=== PATIENT | male | born 1950 | race Caucasian/White ===

== ENCOUNTER 2017-02-26 20:58 | Emergency (ER) | payer OTHER, MEDICARE ==
[~2017-02-26] VITALS: Ht 170.2 cm; Wt 90.5 kg
[~2017-02-26 20:58] MED LIST: ACET-2047 PO; CLON0.1T14 PO; FINA5TAB4 PO; FURO-110 PO; GLIM4TAB PO; METO-448 PO; MTF1000T PO; NIFE60TA7 PO; OMEP20CA16 PO; SIMV20TA PO; TAMS0.4C2 PO
[2017-02-26 21:10] VITALS: Ht 170.2 cm; Wt 90.5 kg
--- NOTE | 2017-02-27 00:44 | ERA ---
ER Documentation Chief Complaint Date/Time DATE: 02/27/17 TIME: 00:44 Chief Complaint LEFT SIDED CP RADIATING TO BACK X 4 DAYS 07/02 HPI The patient is a 66-year-old male, presenting to the ER because of left-sided chest pain intermittently for the last 4 days, 07/02, worse with movement. He denies similar symptoms previously. He also complained of general body pain, worse with movement. He complains of subjective fever last night and intermittent cough. He denies chest pain with exertion or vomiting or diaphoresis, denies abdominal pain, vomiting, dysuria. He does not smoke nor drink Past medical history: Dyslipidemia, hypertension, diabetes mellitus, BPH, chronic low back Past surgical history: Back, ventral hernia ROS All systems reviewed and are negative except as per history of present illness. Medications Home Meds Reported Medications Acetaminophen* (Acetaminophen*) 650 Mg Tablet, 1300 MG PO Q6 Y for PAIN AND OR ELEVATED TEMP, TAB 08/24/14 Simvastatin* (Zocor*) 20 Mg Tablet, 20 MG PO HS, TAB 08/24/14 Nifedipine* (Nifedipine ER*) 60 Mg Tablet.sa, 60 MG PO DAILY, TAB.SA 08/24/14 Furosemide* (Lasix*) 20 Mg Tablet, 20 MG PO DAILY, TAB 08/24/14 Metoprolol Tartrate* (Lopressor*) 25 Mg Tab, 25 MG PO BID, TAB 08/24/14 Glimepiride* (Glimepiride*) 4 Mg Tablet, 4 MG PO BID, TAB 08/24/14 Clonidine Hcl* (Catapres*) 0.1 Mg Tablet, 0.1 MG PO TID, TAB 08/24/14 Metformin* (Glucophage*) 1,000 Mg Tablet, 1000 MG PO BID, TAB 08/24/14 Omeprazole* (Omeprazole*) 20 Mg Capsule.dr, 20 MG PO QD AC MEAL 07/27/13 Tamsulosin Hcl* (Tamsulosin Hcl*) 0.4 Mg Cap.er.24h, 0.8 MG PO DAILY 07/27/13 Finasteride* (Finasteride*) 5 Mg Tablet, 5 MG PO DAILY 07/27/13 Allergies Allergies: Coded Allergies: No Known Drug Allergy (Verified Allergy, Unknown, 09/04/14) PMhx/Soc History of Surgery: Yes (lumbar fusion) Anesthesia Reaction: No Hx Neurological Disorder: No Hx Respiratory Disorders: No Hx Cardiac Disorders: Yes (HTN) Hx Psychiatric Problems: No Hx Miscellaneous Medical Probl: Yes (BPH, CAD, DM, HTN, hyperlipid, chronic LBP ) Hx Alcohol Use: No Hx Substance Use: No Hx Tobacco Use: No Physical Exam Vitals Vital Signs Date Time Temp Pulse Resp B/P Pulse Ox O2 Delivery O2 Flow Rate FiO2 02/27/17 03:30 63 19 131/78 97 Room Air 02/27/17 01:00 64 20 150/92 97 Room Air 02/26/17 21:10 100.6 77 18 153/77 100 Physical Exam Const: No acute distress. Head: Atraumatic. Eyes: Normal Conjunctiva. ENT: Normal External Ears, Nose and Mouth. Neck: Full range of motion. No meningismus. Resp: Clear to auscultation bilaterally. Cardio: Regular rate and rhythm, no murmurs. Reproducible chest wall pain Abd: Soft, non distended, normal bowel sounds, non tender. Skin: No petechiae or rashes. Back: No midline or flank tenderness. Ext: No cyanosis, or edema. Neur: Awake and alert. No focal deficit Psych: Normal Mood and Affect. Result Diagram: 02/27/17 0050 02/27/17 0050 Results 24 hrs Laboratory Tests Test 02/27/17 00:50 White Blood Count 9.910^3/ul Red Blood Count 4.4110^6/ul Hemoglobin 12.9g/dl Hematocrit 38.9% Mean Corpuscular Volume 88.2fl Mean Corpuscular Hemoglobin 29.3pg Mean Corpuscular Hemoglobin Concent 33.2g/dl Red Cell Distribution Width 13.9% Platelet Count 88736^3/UL Mean Platelet Volume 10.3fl Neutrophils % 61.4% Lymphocytes % 27.2% Monocytes % 9.4% Eosinophils % 1.6% Basophils % 0.2% Nucleated Red Blood Cells % 0.0/100WBC Neutrophils # 6.110^3/ul Lymphocytes # 2.710^3/ul Monocytes # 0.910^3/ul Eosinophils # 0.210^3/ul Basophils # 0.010^3/ul Nucleated Red Blood Cells # 0.010^3/ul Prothrombin Time 12.5Sec Prothrombin Time Ratio 1.0 INR International Normalized Ratio 0.93 Activated Partial Thromboplast Time 31.4Sec Sodium Level 138mmol/L Potassium Level 4.2mmol/L Chloride Level 101mmol/L Carbon Dioxide Level 27mmol/L Anion Gap 14 Blood Urea Nitrogen 12mg/dl Creatinine 0.80mg/dl Glucose Level 91mg/dl Lactic Acid Level 1.7mmol/L Calcium Level 9.6mg/dl Total Bilirubin 0.2mg/dl Direct Bilirubin 0.00mg/dl Indirect Bilirubin 0.2mg/dl Aspartate Amino Transf (AST/SGOT) 33IU/L Alanine Aminotransferase (ALT/SGPT) 40IU/L Alkaline Phosphatase 87IU/L Troponin I < 0.012ng/ml Total Protein 7.9g/dl Albumin 4.7g/dl Globulin 3.20g/dl Albumin/Globulin Ratio 1.46 Current Medications Medications (Trade) Dose Ordered Sig/Josiah Route PRN Reason Start Time Stop Time Status Last Admin Dose Admin Aspirin (Aspirin) 325 mg ONCE ONCE PO 02/27/17 01:00 02/27/17 01:01 DC 02/27/17 01:11 Nitroglycerin (Nitroglycerin 2% Oint) 1 inch ONCE ONCE TD 02/27/17 01:00 02/27/17 01:01 DC 02/27/17 01:11 Acetaminophen (Tylenol Tab) 650 mg ONCE ONCE PO 02/27/17 01:00 02/27/17 01:01 DC 02/27/17 01:11 Methocarbamol (Robaxin) 1,500 mg ONCE ONCE PO 02/27/17 03:30 02/27/17 03:32 DC 02/27/17 03:46 Procedures/MDM EKG: Read by emergency physician at 8:57 PM Rate/Rhythm: Normal Sinus Rhythm 75 beats/min QRS, ST, T-waves: No ST elevation, no T inversion, first-degree AV block, LAD Impression: Abnormal EKG EKG: Read by emergency physician at 1:05 AM Rate/Rhythm: Normal Sinus Rhythm 65 beats/min QRS, ST, T-waves: No ST elevation, no T inversion, first-degree AV block Impression: Abnormal EKG [place] [id number] Radiology Main Line: [phone] DIAGNOSTIC IMAGING REPORT Patient: KAYLAH LAURENT : 1950 Age: 66 Sex: M MR #: [id number] DOS: 02/27/17 0046 Ordering MD: CAITIE HOFF MD Location: E/R Room/Bed: PROCEDURE: CHEST - 1 VIEW CLINICAL INDICATION: 66-year-old male with chest pain. TECHNIQUE: A single frontal AP portable view of the chest was performed. The images were reviewed on a PACS workstation. COMPARISON: Chest x-ray September 04, 2014. FINDINGS: There is a shallow inspiration accentuating the heart size. Accounting for this , the cardiomediastinal silhouette is mildly prominent but without significant interval change. There is bilateral lung zone subsegmental atelectasis. There is no evidence for an infiltrate. There is no evidence for congestive heart failure. There is no evidence for pneumothorax. The osseous structures are intact. IMPRESSION: Shallow inspiration with bilateral lower lung zone subsegmental atelectasis. .Tommy Perry MD, MD Date Time Electronically viewed and signed by .Tommy Perry MD, MD on 02/27/2017 01:59 .M/ CC: CAITIE HOFF MD MEDICAL MAKING DECISION: The patient is a 66-year-old male with multiple cardiac risk factors, presenting to the ER because of acute chest pain that is concerning for ACS. He was treated with aspirin 325 mg p.o., 1 inch nitroglycerin ointment for acute chest pain and Tylenol for fever with good response. The differential diagnoses considered include but are not limited to acute coronary syndrome, acute myocardial infarction, pericarditis, pulmonary embolism, aortic dissection, pneumonia, pleural effusion, pneumothorax, GERD, chest wall pain. UA is pending Departure Diagnosis: Primary Impression: Chest pain Additional Impression: Anemia Condition: Stable Comments I discussed the findings with the patient. I discussed the patient with the on- call hospitalist Dr. Edgar who was made aware of the lab, the treatment, the patient condition. The patient is admitted to 2:50 AM CAITIE HOFF MD Feb 27, 2017 00:44
[2017-02-27] MEDS ORDERED: ASPIRIN 325 MG TAB PO ONE (01:00)
[2017-02-27] MEDS ORDERED: NITROGLYCERIN 2% 1 GM OINT PKT TD ONE (01:00)
[2017-02-27] MEDS ORDERED: ACETAMINOPHEN 325 MG TAB PO ONE (01:00)
[2017-02-27 01:17] LABS: ADD SCAN DIFF NO
[2017-02-27 01:21] LABS: BASOPHILS % 0.2 % (0.0-2.0); EOSINOPHILS # 0.2 10^3/ul (0.0-0.5); EOSINOPHILS % 1.6 % (0.0-7.0); HEMATOCRIT 38.9 % (42.0-52.0); HEMOGLOBIN 12.9 g/dl (14.0-18.0); LYMPHOCYTES # 2.7 10^3/ul (0.8-2.9); LYMPHOCYTES % 27.2 % (15.0-51.0); MEAN CORPUSCULAR HEMOGLOBIN 29.3 pg (29.0-33.0); MEAN CORPUSCULAR HGB CONC 33.2 g/dl (32.0-37.0); MEAN CORPUSCULAR VOLUME 88.2 fl (82.0-101.0); MEAN PLATELET VOLUME 10.3 fl (7.4-10.4); MONOCYTE # 0.9 10^3/ul (0.3-0.9); MONOCYTES % 9.4 % (0.0-11.0); NEUTROPHIL # 6.1 10^3/ul (1.6-7.5); NEUTROPHILS % 61.4 % (39.0-77.0); PLATELET COUNT 284 10^3/UL (140-415); RED BLOOD COUNT 4.41 10^6/ul (4.70-6.10); RED CELL DISTRIBUTION WIDTH 13.9 % (11.5-14.5); WHITE BLOOD COUNT 9.9 10^3/ul (4.8-10.8)
[2017-02-27 01:30] LABS: INR 0.93; PARTIAL THROMBOPLASTIN TIME 31.4 Sec (25.0-35.0); PROTIME 12.5 Sec (12.2-14.2)
[2017-02-27 01:32] LABS: ALBUMIN 4.7 g/dl (3.3-4.9); ALBUMIN/GLOBULIN RATIO 1.46; BILIRUBIN,INDIRECT 0.2 mg/dl (0-1.1); BILIRUBIN,TOTAL 0.2 mg/dl (0.2-1.3); CALCIUM 9.6 mg/dl (8.4-10.2); CREATININE 0.8 mg/dl (0.61-1.24); POTASSIUM 4.2 mmol/L (3.5-5.1); TOTAL PROTEIN 7.9 g/dl (6.1-8.1)
--- NOTE | 2017-02-27 01:59 | RADRPT ---
PROCEDURE: CHEST - 1 VIEW CLINICAL INDICATION: 66-year-old male with chest pain. TECHNIQUE: A single frontal AP portable view of the chest was performed. The images were reviewed on a PACS workstation. COMPARISON: Chest x-ray September 04, 2014. FINDINGS: There is a shallow inspiration accentuating the heart size. Accounting for this, the cardiomediasti nal silhouette is mildly prominent but without significant interval change. There is bilateral lung zone subsegmental atelectasis. There is no evidence for an infiltrate. There is no evidence for c ongestive heart failure. There is no evidence for pneumothorax. The osseous structures are intact. IMPRESSION: Shallow inspiration with bilateral lower lung zone subsegmental atelectasis. .Tommy Perry MD, Date Time Electronically viewed and signed by .Tommy Perry MD, on 02/27/2017 01:59 .M/
--- NOTE | 2017-02-27 03:02 | HP ---
Date/Time of Note Date/Time of Note DATE: 02/27/17 TIME: 02:56 Assessment/Plan VTE Prophylaxis VTE Prophylaxis Intervention: ambulation Lines/Catheters IV Catheter Type (from Nrsg): Saline Lock Assessment/Plan Assessment/Plan 1) Chest wall pain, likely due to spasm of the left Rhomboid musculature with radiation along the path of the ribs with specific pain and tenderness in the left upper anterior chest wall - Treatment with an Ice Pack and Robaxin 1500 mg po successfully reduced this pain in general and allowed him to move more freely and with less pain. - Patient may eat a Diabetic Diet, Accu Chek before, while awaiting the results of his second Troponin. - If it is negative, patient will be discharged home with PCP follow-up, ice pack for 20 minutes TID to QID for 1 to 2 days and Robaxin TID - If there is any change/higher number, then patient will be kept for his 3rd Troponin, Echocardiogram and [employer]ner evaluation. HPI/ROS Admit Date/Time Admit Date/Time 02/27/17 0250 Hx of Present Illness Patient presents with complaint of chest pain x 4 days, getting worse. It started in his back by his left shoulder blade and he also feels it in his left upper chest. 8/10 on pain scale at its worse. Aggravated by taking a deep breath or moving his left upper extremity. He does not complain of other body pains to me, but he does mention that his face felt hot last night, but he denies fever, chills, nausea, vomiting or sweating. The shortness of breath he describes is because he cannot take even a moderately deep breath without severe, sharp pain in his left upper back. Based on the history I obtained, the review of his old records and exam of the patient, as well as his response to and Ice Pack to his left upper back and Methocarbamal 1500 mg po x 1, I feel that patient's pain is completely musculoskeletal because it is specifically reproducible with palpation of the affected areas and aggravated by simple movements and there has been good response to the treatment I gave him. I will await his second Troponin, and if it is negative, I will Discharge him home. In the meantime, I have advanced his diet and ordered an Accu-Chek AC. I realize that patient does have risk factors such as male sex, age, HTN, Dyslipidemia, but he has 2 EKGs and a Chest X-Ray that are negative for acute changes, and his labs are normal, including 1st Troponin <0.012. I do not feel that his chest pain is related to his heart at all. Other than his risk factors . . . I find little to support a diagnosis of Acute Coronary Syndrome or any Cardiopulmonary cause of chest pain. ROS General: Admits: Denies: Fever, Chills, Poor Appetite, Generalized Body Aches Eyes: Admits: Denies: Blurry Vision, Double Vision HENT: Admits: Denies: Ear Pain/Pressure, Runny/Stuffy Nose, Sore Throat Cardiovascular: Admits: Denies: Chest Pain, Palpitations, Leg Swelling Pulmonary: Admits: Denies: Cough, Wheeze, Shortness of Breath Gastrointestinal: Admits: Denies: Abdominal Pain, Nausea, Vomiting, Diarrhea, Blood in Stool, Black-Colored Stool Urogenital: Admits: Denies: Burning with Urination, Urinary Frequency, Blood in Urine Musculoskeletal: Admits: General joint and muscle pains and chronic low back pain. Denies: Joint Swelling Neurological: Admits: Denies: Headache, Dizziness, Numbness, Tingling, Shooting Pains, Weakness in Extremities Integumentary: Admits: Denies: Rash, Itch PMH/Family/Social Past Medical History BPH; CAD; DM; HTN; Dyslipidemia; Chronic LBP Past Surgical History Lumbar Fusion; Ventral Hernia Repair; Angiogram in 2008 for Chest Pain - No Coronary findings. Social History Alcohol Use: none Smoking Status: Never smoker Drug Use: none Exam/Review of Systems Vital Signs Vitals Vital Signs Date Time Temp Pulse Resp B/P Pulse Ox O2 Delivery O2 Flow Rate FiO2 02/26/17 21:10 100.6 77 18 153/77 100 Exam Exam General: Overweight Pan[place]ian-Speaking male, alert and oriented, in mild distress due tp pain when lying still and in moderate to severe distress due to pain with most movements that involve his back and left upper extremity Eyes: Sclera White, EOMI HENT: Normocephalic/Atraumatic, External Ears/Nose Normal, Moist Mucus Membranes Neck: Supple, Trachea Midline Cardiovascular: Normal Rate, Regular Rhythm, Normal S1 and S2, No Murmur, No Extra Sounds. Radial pulse +2/4. No pedal Edema. Pulmonary: Clear to Auscultation Bilaterally, Normal Respiratory Effort, No Rales, Rhonchi or Wheezes Gastrointestinal: Normoactive Bowel Sounds, Soft, Non-Tender/Non-Distended, No Hepatosplenomegaly Appreciated, No Pulsatile Masses Urogenital: Deferred Musculoskeletal: Normal Muscle Bulk and Tone. Patient's "chest pain" is reproducible to 8/10 on pain scale with palpation along the medial aspect of the left scapula and with AP Neurological: CN II - XII Grossly Intact, Non-Focal, Speech Normal Integumentary: Normal Moisture and Temperature, Good Turgor, No Jaundice, No Rash Lymphatic: No Cervical Lymphadenopathy Psychiatric: Appropriate Mood and Affect, Good Eye Contact Labs Result Diagram: 02/27/174902/27/1749 Medications Medications Home Meds Reported Medications Acetaminophen* (Acetaminophen*) 650 Mg Tablet, 1300 MG PO Q6 Y for PAIN AND OR ELEVATED TEMP, TAB 08/24/14 Simvastatin* (Zocor*) 20 Mg Tablet, 20 MG PO HS, TAB 08/24/14 Nifedipine* (Nifedipine ER*) 60 Mg Tablet.sa, 60 MG PO DAILY, TAB.SA 08/24/14 Furosemide* (Lasix*) 20 Mg Tablet, 20 MG PO DAILY, TAB 08/24/14 Metoprolol Tartrate* (Lopressor*) 25 Mg Tab, 25 MG PO BID, TAB 08/24/14 Glimepiride* (Glimepiride*) 4 Mg Tablet, 4 MG PO BID, TAB 08/24/14 Clonidine Hcl* (Catapres*) 0.1 Mg Tablet, 0.1 MG PO TID, TAB 08/24/14 Metformin* (Glucophage*) 1,000 Mg Tablet, 1000 MG PO BID, TAB 08/24/14 Omeprazole* (Omeprazole*) 20 Mg Capsule.dr, 20 MG PO QD AC MEAL 07/27/13 Tamsulosin Hcl* (Tamsulosin Hcl*) 0.4 Mg Cap.er.24h, 0.8 MG PO DAILY 07/27/13 Finasteride* (Finasteride*) 5 Mg Tablet, 5 MG PO DAILY 07/27/13 Current Medications Medications (Trade) Dose Ordered Sig/Josiah Route PRN Reason Start Time Stop Time Status Last Admin Dose Admin Aspirin (Aspirin) 325 mg ONCE ONCE PO 02/27/17 01:00 02/27/17 01:01 DC 02/27/17 01:11 Nitroglycerin (Nitroglycerin 2% Oint) 1 inch ONCE ONCE TD 02/27/17 01:00 02/27/17 01:01 DC 02/27/17 01:11 Acetaminophen (Tylenol Tab) 650 mg ONCE ONCE PO 02/27/17 01:00 02/27/17 01:01 DC 02/27/17 01:11 Methocarbamol (Robaxin) 1,500 mg ONCE ONCE PO 02/27/17 03:30 02/27/17 03:32 DC 02/27/17 03:46 Procedures Procedures Laboratory Tests Test 02/27/17 00:50 White Blood Count 9.910^3/ul Red Blood Count 4.4110^6/ul Hemoglobin 12.9g/dl Hematocrit 38.9% Mean Corpuscular Volume 88.2fl Mean Corpuscular Hemoglobin 29.3pg Mean Corpuscular Hemoglobin Concent 33.2g/dl Red Cell Distribution Width 13.9% Platelet Count 30768^3/UL Mean Platelet Volume 10.3fl Neutrophils % 61.4% Lymphocytes % 27.2% Monocytes % 9.4% Eosinophils % 1.6% Basophils % 0.2% Nucleated Red Blood Cells % 0.0/100WBC Neutrophils # 6.110^3/ul Lymphocytes # 2.710^3/ul Monocytes # 0.910^3/ul Eosinophils # 0.210^3/ul Basophils # 0.010^3/ul Nucleated Red Blood Cells # 0.010^3/ul Prothrombin Time 12.5Sec Prothrombin Time Ratio 1.0 INR International Normalized Ratio 0.93 Activated Partial Thromboplast Time 31.4Sec Sodium Level 138mmol/L Potassium Level 4.2mmol/L Chloride Level 101mmol/L Carbon Dioxide Level 27mmol/L Anion Gap 14 Blood Urea Nitrogen 12mg/dl Creatinine 0.80mg/dl Glucose Level 91mg/dl Lactic Acid Level 1.7mmol/L Calcium Level 9.6mg/dl Total Bilirubin 0.2mg/dl Direct Bilirubin 0.00mg/dl Indirect Bilirubin 0.2mg/dl Aspartate Amino Transf (AST/SGOT) 33IU/L Alanine Aminotransferase (ALT/SGPT) 40IU/L Alkaline Phosphatase 87IU/L Troponin I < 0.012ng/ml Total Protein 7.9g/dl Albumin 4.7g/dl Globulin 3.20g/dl Albumin/Globulin Ratio 1.46 EKG: Read by emergency physician at 8:57 PM Rate/Rhythm: Normal Sinus Rhythm 75 beats/min QRS, ST, T-waves: No ST elevation, no T inversion, first-degree AV block, LAD Impression: Abnormal EKG EKG: Read by emergency physician at 1:05 AM (I concur) Rate/Rhythm: Normal Sinus Rhythm 65 beats/min QRS, ST, T-waves: No ST elevation, no T inversion, first-degree AV block Impression: Abnormal EKG PROCEDURE: CHEST - 1 VIEW CLINICAL INDICATION: 66-year-old male with chest pain. TECHNIQUE: A single frontal AP portable view of the chest was performed. The images were reviewed on a PACS workstation. COMPARISON: Chest x-ray September 04, 2014. FINDINGS: There is a shallow inspiration accentuating the heart size. Accounting for this , the cardiomediastinal silhouette is mildly prominent but without significant interval change. There is bilateral lung zone subsegmental atelectasis. There is no evidence for an infiltrate. There is no evidence for congestive heart failure. There is no evidence for pneumothorax. The osseous structures are intact. IMPRESSION: Shallow inspiration with bilateral lower lung zone subsegmental atelectasis. JUAN JOSE STARR DO Feb 27, 2017 03:01
[2017-02-27] MEDS ORDERED: METHOCARBAMOL 750 MG TAB PO ONE (03:30)
[2017-02-27 05:17] LABS: URINE BLOOD (Dip) POC Negative (NEGATIVE)
[2017-02-27] MEDS ORDERED: ONDANSETRON 4 MG INJ IV STA (05:26)
[2017-02-27] MEDS ORDERED: morphine 2 MG INJ IV ONE (05:30)
[2017-02-27] MEDS ORDERED: GLUCAGON 1 MG INJ IM PRN (07:00)
[2017-02-27] MEDS ORDERED: DEXTROSE 50% 50 ML SYRINGE IV PRN ×2 (07:00)
[2017-02-27] MEDS ORDERED: GLUCOSE GEL 15 GRAM TUBE BUCCAL PRN (07:00)
[2017-02-27] MEDS ORDERED: GLUCOSE GEL 15 GRAM TUBE PO PRN ×2 (07:00)
[2017-02-27] MEDS ORDERED: INSULIN ASPART [NOVOLOG] 3 ML PEN SC SCH (08:00)
[2017-02-27] MEDS ORDERED: ACET-141 PO (08:14)
[2017-02-27 09:34] LABS: CREATINE KINASE 64 IU/L (23-200)
[2017-02-27 09:48] LABS: CK-MB 0.33 ng/ml (0.0-2.4); TROPONIN-I < 0.012 ng/ml (0.00-0.12)
[2017-02-27] MEDS ORDERED: [UNRECOGNIZED DRUG - OTHER] PO (10:28)
[2017-02-27] MEDS ORDERED: METH750T2 PO (10:31)
--- NOTE | 2017-02-27 10:39 | EN ---
Date/Time of Note Date/Time of Note DATE: 02/27/17 TIME: 10:38 ER Progress Note This patient was admitted for chest pain. The patient has been evaluated by his admitting physician, Dr. Edgar. Dr. Edgar states that this patient can be discharged home. This patient was discharged by Dr. Edgar, however given the fact that there are no available beds of stenosis patient was holding in the emergency room and will be discharged. TIFFANIE SAHNI DO Feb 27, 2017 10:39
[2017-02-27 12:24] VITALS: BP 160/72; PULSE 68; RESP 18; TEMP 97.7
== END 2017-02-27 12:30 | disposition home or self-care (01) ==
LOC: E/R 20:58
DX: R07.9 Chest pain, unspecified (principal); D64.9 Anemia, unspecified; I10 Essential (primary) hypertension; E11.9 Type 2 diabetes mellitus without complications; I25.10 Atherosclerotic heart disease of native coronary artery without angina pectoris; Z79.84 Long term (current) use of oral hypoglycemic drugs
CPT/HCPCS: 36415; 71010; 80053; 81003; 82550; 82553; 82962; 83605; 84484; 85025; 85610; 85730; 87040; 93005; 96374; 96375; 99285; J1815; J2270; J2405; 87086

== ENCOUNTER 2017-08-03 06:49 | Emergency (ER) | payer OTHER ==
[~2017-08-03] VITALS: Ht 170.2 cm; Wt 86.4 kg
[~2017-08-03 06:49] MED LIST changes: +ACET-141 PO; -ACET-2047 PO; +METH750T2 PO; +[UNRECOGNIZED DRUG - OTHER] PO
[2017-08-03 06:52] VITALS: Ht 170.2 cm; Wt 86.4 kg
[2017-08-03] MEDS ORDERED: morphine 2 MG INJ IV STA (07:13)
[2017-08-03] MEDS ORDERED: SOD CHLORIDE 0.9% 1,000 ML IV STA (07:13)
[2017-08-03] MEDS ORDERED: ONDANSETRON 4 MG INJ IV STA (07:13)
[2017-08-03 08:05] LABS: BASOPHILS % 0.2 % (0.0-2.0); EOSINOPHILS # 0.1 10^3/ul (0.0-0.5); EOSINOPHILS % 1.7 % (0.0-7.0); HEMATOCRIT 40.9 % (42.0-52.0); HEMOGLOBIN 13.7 g/dl (14.0-18.0); LYMPHOCYTES # 1.6 10^3/ul (0.8-2.9); LYMPHOCYTES % 24.6 % (15.0-51.0); MEAN CORPUSCULAR HEMOGLOBIN 29.5 pg (29.0-33.0); MEAN CORPUSCULAR HGB CONC 33.5 g/dl (32.0-37.0); MEAN PLATELET VOLUME 10.5 fl (7.4-10.4); MONOCYTE # 0.5 10^3/ul (0.3-0.9); MONOCYTES % 7.6 % (0.0-11.0); NEUTROPHILS % 65.6 % (39.0-77.0); PLATELET COUNT 213 10^3/UL (140-415); RED BLOOD COUNT 4.65 10^6/ul (4.70-6.10); RED CELL DISTRIBUTION WIDTH 13.4 % (11.5-14.5); WHITE BLOOD COUNT 6.3 10^3/ul (4.8-10.8)
--- NOTE | 2017-08-03 08:20 | ERD ---
ER Documentation Chief Complaint Date/Time DATE: 08/03/17 TIME: 08:18 Chief Complaint lower back pain, hx: pain previous injury HPI Patient is a 67-year-old male who presents with low back pain that is chronic secondary to an injury 10 years ago however it has gotten worse within the past 4 days. He also admits to lower abdominal pain with nausea but no vomiting. No hematuria but admits to dysuria and frequency. Pain is 9 out of 10. He took Tylenol with it did not help. No chest pain or shortness of breath. ROS All systems reviewed and are negative except as per history of present illness. Medications Home Meds Active Scripts Methocarbamol* (Methocarbamol*) 750 Mg Tablet, 750 MG PO TID Y for MUSCLE SPASMS for 10 Days, #60 TAB Prov:JUAN JOSE STARR DO 02/27/17 [methocarbamal] No Conflict Check, 1500 MG PO TID Y for MUSCLE SPASMS for 10 Days, #30 TAB Prov:JUAN JOSE STARR DO 02/27/17 Acetaminophen* (Acetaminophen*) 500 MG Extra Strength Tablet, 1000 MG PO Q6H Y for PAIN AND OR ELEVATED TEMP, #100 TAB Prov:JUAN JOSE STARR DO 02/27/17 Reported Medications Simvastatin* (Zocor*) 20 Mg Tablet, 20 MG PO HS, TAB 08/24/14 Nifedipine* (Nifedipine ER*) 60 Mg Tablet.sa, 60 MG PO DAILY, TAB.SA 08/24/14 Furosemide* (Lasix*) 20 Mg Tablet, 20 MG PO DAILY, TAB 08/24/14 Metoprolol Tartrate* (Lopressor*) 25 Mg Tab, 25 MG PO BID, TAB 08/24/14 Glimepiride* (Glimepiride*) 4 Mg Tablet, 4 MG PO BID, TAB 08/24/14 Clonidine Hcl* (Catapres*) 0.1 Mg Tablet, 0.1 MG PO TID, TAB 08/24/14 Metformin* (Glucophage*) 1,000 Mg Tablet, 1000 MG PO BID, TAB 08/24/14 Omeprazole* (Omeprazole*) 20 Mg Capsule.dr, 20 MG PO QD AC MEAL 07/27/13 Tamsulosin Hcl* (Tamsulosin Hcl*) 0.4 Mg Cap.er.24h, 0.8 MG PO DAILY 07/27/13 Finasteride* (Finasteride*) 5 Mg Tablet, 5 MG PO DAILY 07/27/13 Allergies Allergies: Coded Allergies: No Known Drug Allergy (Verified Allergy, Unknown, 02/27/17) PMhx/Soc History of Surgery: Yes (lumbar fusion) Anesthesia Reaction: No Hx Neurological Disorder: No Hx Respiratory Disorders: No Hx Cardiac Disorders: Yes (HTN) Hx Psychiatric Problems: No Hx Miscellaneous Medical Probl: Yes (BPH, CAD, DM, HTN, hyperlipid, chronic LBP ) Hx Alcohol Use: No Hx Substance Use: No Hx Tobacco Use: No Smoking Status: Never smoker FmHx Family History: diabetes Physical Exam Vitals Vital Signs Date Time Temp Pulse Resp B/P Pulse Ox O2 Delivery O2 Flow Rate FiO2 08/03/17 06:52 99.4 93 18 177/88 97 Physical Exam INITIAL VITAL SIGNS: Reviewed by me GENERAL: Awake, alert and oriented x 4, well appearing, nontoxic, speaking in full sentences. No acute distress HEAD: Atraumatic EYES: EOMI. PERRL. NECK: Supple. No masses. Full range of motion. No meningismus. No midline tenderness. RESPIRATORY: Clear to auscultation bilaterally. Symmetric chest wall rise. No wheezing or rales. No accessory muscle use. CV: Regular rate and rhythm. No murmurs, rubs, or gallops. ABDOMEN: Soft, non-distended. Nontender. Negative [place]. Negative [place] point tenderness. No CVA tenderness bilaterally. No guarding. No rebound. : Deffered. EXTREMITIES: No clubbing or cyanosis. No edema. Moving all extremities normally. BACK: No midline tenderness to palpation. No step-offs. Result Diagram: 08/03/17 0752 08/03/17 0752 Results 24 hrs Laboratory Tests Test 08/03/17 07:52 08/03/17 08:15 White Blood Count 6.310^3/ul Red Blood Count 4.6510^6/ul Hemoglobin 13.7g/dl Hematocrit 40.9% Mean Corpuscular Volume 88.0fl Mean Corpuscular Hemoglobin 29.5pg Mean Corpuscular Hemoglobin Concent 33.5g/dl Red Cell Distribution Width 13.4% Platelet Count 96816^3/UL Mean Platelet Volume 10.5fl Neutrophils % 65.6% Lymphocytes % 24.6% Monocytes % 7.6% Eosinophils % 1.7% Basophils % 0.2% Nucleated Red Blood Cells % 0.0/100WBC Neutrophils # (Manual) 4.110^3/ul Lymphocytes # 1.610^3/ul Monocytes # 0.510^3/ul Eosinophils # 0.110^3/ul Basophils # 0.010^3/ul Nucleated Red Blood Cells # 0.010^3/ul Sodium Level 138mmol/L Potassium Level 4.3mmol/L Chloride Level 101mmol/L Carbon Dioxide Level 29mmol/L Anion Gap 12 Blood Urea Nitrogen 14mg/dl Creatinine 0.85mg/dl Glucose Level 248mg/dl Calcium Level 9.9mg/dl Total Bilirubin 0.3mg/dl Direct Bilirubin 0.00mg/dl Indirect Bilirubin 0.3mg/dl Aspartate Amino Transf (AST/SGOT) 27IU/L Alanine Aminotransferase (ALT/SGPT) 37IU/L Alkaline Phosphatase 100IU/L Total Protein 7.3g/dl Albumin 4.3g/dl Globulin 3.00g/dl Albumin/Globulin Ratio 1.43 Lipase 105U/L Urine Color YELLOW Urine Clarity CLEAR Urine pH 5.0 Urine Specific [place] 1.013 Urine Ketones TRACEmg/dL Urine Nitrite NEGATIVEmg/dL Urine Bilirubin NEGATIVEmg/dL Urine Urobilinogen NEGATIVEmg/dL Urine Leukocyte Esterase NEGATIVELeu/ul Urine Microscopic RBC 1/HPF Urine Microscopic WBC 1/HPF Urine Hemoglobin NEGATIVEmg/dL Urine Glucose 1+mg/dL Urine Total Protein 1+mg/dl Current Medications Medications (Trade) Dose Ordered Sig/Josiah Route PRN Reason Start Time Stop Time Status Last Admin Dose Admin Sodium Chloride (NS) 1,000 ml @ 1,000 mls/hr Q1H STAT IV 08/03/17 07:13 08/03/17 08:12 DC 08/03/17 07:48 Morphine Sulfate (morphine) 2 mg ONCE STAT IV 08/03/17 07:13 08/03/17 07:15 DC 08/03/17 07:48 Ondansetron HCl (Zofran Inj) 4 mg ONCE STAT IV 08/03/17 07:13 08/03/17 07:15 DC 08/03/17 07:48 Procedures/MDM Patient has back pain and abdominal pain. He has no tenderness throughout exam. His back pain is acute on chronic. The differential diagnosis includes but is not limited to muscle strain, ligament strain, contusion, arthritis, discogenetic disease, non-musculoskeletal, cauda equina syndrome, cord compression, abscess, appendicitis, cholelithiasis, cholecystitis, pancreatitis , hepatitis, gastritis, peptic ulcer disease, bowel obstruction, diverticulitis , renal disease including stones, torsion, AAA, pyelonephritis, and others. He has no chest pain or shortness of breath. Other than his elevated blood sugar of 248 his blood work is within normal limits. CT scan of the lumbar spine and abdomen and pelvis showed no acute emergent abnormalities. He was discharged with [place] and ibuprofen. Patient counseled regarding my diagnostic impression and care plan. Prior to discharge all questions answered. Pt agrees with treatment plan and understands strict return precautions. Pt is instructed to follow up with primary care provider within 24-48 hours. Precautionary instructions provided including instructions to return to the ER if not improving or for any worsening or changing symptoms or concerns. Departure Diagnosis: Primary Impression: Back pain Additional Impression: Abdominal pain Condition: Stable JOSE F SARAVIA PA-C Aug 03, 2017 08:20
--- NOTE | 2017-08-03 08:30 | RADRPT ---
PROCEDURE: CT Abdomen and Pelvis without intravenous contrast. CLINICAL INDICATION: Abdominal pain . TECHNIQUE: CT scan of the abdomen and pelvis without intravenous contrast was performed on a multi -slice CT scanner. Coronal and sagittal reformatted images were obtained from the axial source image s. Images were reviewed on a high-resolution PACS workstation. Total DLP = 2213.8 mGy-cm. CTDIvol = 35.1, 19.1 mGy. One or more of the following dose reduction techniques were used: Automated exposure control. Adjustment of the mA and/or kV according to patient size. Use of iterative reconstruction technique. COMPARISON: 08/24/2014 FINDINGS: CT abdomen and pelvis: The lung bases are clear. The heart size is normal in size. The liver is normal in size and densit y without focal mass or intrahepatic biliary dilatation. The spleen is normal in size and homogeneo us in density. The pancreas as visualized is normal. The gallbladder shows no evidence of stones or distension . The adrenal glands are normal. The kidneys are symmetrically unremarkable. No ur olithiasis, obstructive uropathy, or solid mass lesion is seen. The stomach is partially collapsed, but is grossly unremarkable. The small bowels are unremarkable. The colon and rectum are normal. The appendix is normal. There are scattered colonic diverticula. T here is no evidence of appendicitis or diverticulitis. The pelvic organs are normal. The bladder is normal. There is no abdominal or pelvic adenopathy, free fluid, free air, mass or mesenteric inflamm ation. The aorta is normal in caliber with calcific atherosclerosis . The osseous structures shows fixation hardware at the posterior lower lumbar spine.. No osteolytic or osteoblastic lesions are identified . The soft tissues are within normal limits. Lack of IV and oral contrast limits sensitivity of ex am. IMPRESSION: 1. Posterior fixation hardware at the lower lumbar spine. 2. Scattered colonic diverticula without evidence of diverticulitis. 3. Calcific atherosclerosis of the aorta. 4. Otherwise unremarkable noncontrast CT abdomen and pelvis without acute pathology identified. RPTAT: KK .Tony Luu MD, MD Date Time Electronically viewed and signed by .Tony Luu MD, on 08/03/2017 08:30 .L/
[2017-08-03 08:31] LABS: ALBUMIN 4.3 g/dl (3.3-4.9); ALBUMIN/GLOBULIN RATIO 1.43; BILIRUBIN,INDIRECT 0.3 mg/dl (0-1.1); BILIRUBIN,TOTAL 0.3 mg/dl (0.2-1.3); CALCIUM 9.9 mg/dl (8.4-10.2); CREATININE 0.85 mg/dl (0.61-1.24); POTASSIUM 4.3 mmol/L (3.5-5.1); TOTAL PROTEIN 7.3 g/dl (6.1-8.1)
--- NOTE | 2017-08-03 08:49 | RADRPT ---
PROCEDURE: CT lumbar spine without contrast. CLINICAL INDICATION: Back pain TECHNIQUE: CT of the lumbar spine without contrast was performed on a multidetector CT scanner, wi th multiplanar reformats. One or more of the following dose reduction techniques were used: Automat ed exposure control, adjustment in mA and / or kV according to patient size, use of iterative recons tructive technique. CTDIvol = 35 mGy and DLP = 1028 mGy-cm. COMPARISON: None available. FINDINGS: No fracture or dislocation is identified. There is preservation of the lordosis of the lumbar spine . There is trace retrolisthesis at L3-4. The vertebral bodies are maintained in height. Postopera tive changes present with evidence of interbody fusion and posterior fusion at L4-5 and L5-S1 with b ilateral pedicle screws and posterior rods. There are areas of solid interbody and posterior fusion at the operative levels. Hardware appears intact without surrounding lucency. There are associated a rtifacts. There are anterior osteophytes at L2-3 and L3-4. Schmorl nodes are noted at the L2-3 level . There is congenital / developmental narrowing of the lumbar spinal canal. T12-L1: No disc bulge or herniation is identified. No acquired central canal stenosis or foraminal narrowing is identified. L1-L2: No disc bulge or herniation is identified. No acquired central canal stenosis or foraminal narrowing is identified. L2-L3: There is posterior disc bulging and facet arthropathy. Mild to moderate central canal stenosi s and mild right foraminal narrowing are identified. L3-L4: There is posterior disc bulging and facet arthropathy with ligamentum flavum hypertrophy smal l focus of vacuum change in the ventral right epidural region just above the disc space. Moderate central canal stenosis with lateral recess narrowing and mild - moderate bilateral foraminal narrowi ng identified. L4-L5: Postoperative changes are present as described above. There are artifacts from the hardware w hich partially obscure the spinal canal. No osseous central canal stenosis is identified. Mild - mo derate bilateral foraminal narrowing is identified. L5-S1: Postoperative changes are present as described above. There are artifacts in the hardware whi ch partially obscure the spinal canal. No osseous central canal stenosis is identified. Mild - mode rate bilateral foraminal narrowing is identified. IMPRESSION: 1. No fracture/dislocation identified. 2. Lumbar spondylosis/degenerative enthesopathy with underlying congenital - developmental narrowin g of the lumbar spinal canal. 3. Status post interbody and posterior fusion at L4-5, L5-S1 with solid interbody and posterior fus ion at these levels. 4. Moderate central canal stenosis with lateral recess narrowing L3-4, mild to moderate central can al stenosis at L2-3. 5. Multilevel foraminal narrowing detailed above. RPTAT: VV .Adam Bautista MD, Date Time Electronically viewed and signed by .Adam Bautista MD, MD on 08/03/2017 08:48 .O/
[2017-08-03 08:50] LABS: ADD UMIC YES; UR ASCORBIC ACID NEGATIVE (NEGATIVE); UR BILIRUBIN (Dip) NEGATIVE (NEGATIVE); UR BLOOD (Dip) NEGATIVE (NEGATIVE); UR CLARITY CLEAR (CLEAR); UR COLOR YELLOW (YELLOW); UR GLUCOSE (Dip) 1+ mg/dL (NEGATIVE); UR KETONES (Dip) TRACE mg/dL (NEGATIVE); UR LEUKOCYTE ESTERASE (Dip) NEGATIVE Leu/ul (NEGATIVE); UR NITRITE (Dip) NEGATIVE (NEGATIVE); UR RBC 1 /HPF (0-5); UR SPECIFIC GRAVITY (Dip) 1.013 (1.003-1.030); UR TOTAL PROTEIN (Dip) 1+ mg/dl (NEGATIVE); UR UROBILINOGEN (Dip) NEGATIVE (NEGATIVE)
[2017-08-03] MEDS ORDERED: IBUP-1542 PO (09:04)
[2017-08-03] MEDS ORDERED: HYDR-906 PO (09:04)
[2017-08-03] MEDS ORDERED: morphine 4 MG/ML VIAL IV STA (09:15)
[2017-08-03 10:20] VITALS: BP 160/78; PULSE 78; RESP 20; TEMP 98.2
== END 2017-08-03 10:20 | disposition home or self-care (01) ==
LOC: FTE 06:49
DX: M54.5 Low back pain (principal); R10.30 Lower abdominal pain, unspecified; I25.10 Atherosclerotic heart disease of native coronary artery without angina pectoris; E11.9 Type 2 diabetes mellitus without complications; I10 Essential (primary) hypertension; R11.0 Nausea; Z79.84 Long term (current) use of oral hypoglycemic drugs
CPT/HCPCS: 36415; 72131; 74176; 80053; 81001; 83690; 85025; 96374; 96375; 96376; 99285; J2270; J2405; J7030